=== PATIENT | female | born 2000 | race Caucasian/White ===

== ENCOUNTER 2022-11-07 09:29 | Emergency (ER) | payer SELFPAY ==
[2022-11-07 09:38] VITALS: BP 112/78; PULSE 113; RESP 14; TEMP 35.9; O2SAT 100
--- NOTE | 2022-11-07 09:38 | ED.GENADULT ---
HPI - General Adult General Chief complaint: Dental/Oral Stated complaint: Swollen Lip/Seizure Source: patient and RN notes reviewed History of Present Illness HPI narrative: 22 yo F presents to urgent care with complaints of upper lip swelling and upper dental pain x 2 days. Pt states and shows a picture of her lip swelling yesterday which was much worse. Pt states she had a seizure yesterday where she fell backwards, landing on the couch. Pt states her boyfriend witnessed this states it lasted about 2 minutes. Pt reports hx of epilepsy but hasn't taken meds for the last 4-5 years due to lack of seizures during this time. Pt denies hitting her head on anything. Denies any vomiting, headache, or dizziness. Pt denies any fevers, chills, chest pain, or SOB. Pt denies any new medications, foods, or drinks to explain possible allergic reaction. Related Data Allergies Allergy/AdvReac Type Severity Reaction Status Date / Time No Known Allergies Allergy Mild Verified 11/07/22 09:48 Review of Systems Review of Systems: CONSTITUTIONAL: Denies fever, chills, or sweats. EYES: Denies visual changes, redness, or discharge. ENT: Upper, front, dental pain and upper lip swelling CARDIOVASCULAR: Denies chest pain, palpitations, or edema. RESPIRATORY: Denies cough or dyspnea. GASTROINTESTINAL: Denies abdominal pain, nausea, vomiting, or diarrhea. GENITOURINARY: Denies dysuria or hematuria. SKIN: Denies rash or itching. MUSCULOSKELETAL: Denies back pain, joint pain, or myalgia. NEUROLOGIC: Denies headache, numbness, or weakness. Pertinent positives per HPI. PMFSH Comments At the time of my signature, I reviewed and agree with the nursing past medical, surgical, social, and family history. There is no relevant family history pertinent to the patient complaint. Exam Narrative: GENERAL: This is a well-nourished, well-developed patient, in no apparent distress. HEAD: normocephalic, atraumatic. EYES: Sclera clear/white. Vision is grossly intact. MOUTH: varying degrees of dental decay and broken teeth noted. Upper lip swelling noted. no dental abscess appreciated. EARS: External ears normal, auditory canals clear and without drainage, TMs normal without perforation. Hearing grossly intact. NOSE: External nose normal with no obvious nasal discharge, nares without redness, no rhinorrhea. THROAT: Mucous membranes moist, posterior pharynx clear. NECK: Neck supple, non-tender without lymphadenopathy, masses or thyromegaly. CARDIOVASCULAR: Regular rate and rhythm without murmurs, gallops, or rubs. RESPIRATORY: Clear to auscultation. Breath sounds equal bilaterally. No wheezes, rales, or rhonchi. GASTROINTESTINAL: Abdomen soft, non-tender, nondistended. Bowel sounds are active. No hepato-splenomegaly, or palpable masses. No guarding. SKIN: warm, intact with no suspicious lesions or rash, good texture and turgor. NEURO: awake, alert, and oriented to person, place and time. There were no obvious focal neurologic abnormalities. EXTREMITIES: No clubbing, cyanosis, or edema. No joint tenderness, effusion, or edema noted. BACK: Nontender without deformity or crepitus. No flank tenderness. Course Course Level of Care: Express Care Visit Vital Signs Vital signs: Vital Signs Temperature 96.7 F L 11/07/22 09:38 Pulse Rate 113 H 11/07/22 09:38 Respiratory Rate 14 11/07/22 09:38 Blood Pressure 112/78 11/07/22 09:38 Pulse Oximetry 100 11/07/22 09:38 Oxygen Delivery Room Air 11/07/22 09:38 Temperature 96.7 F L 11/07/22 09:48 Pulse Rate 113 H 11/07/22 09:48 Respiratory Rate 14 11/07/22 09:48 Blood Pressure 112/78 11/07/22 09:48 Pulse Oximetry 100 11/07/22 09:48 Oxygen Delivery Room Air 11/07/22 09:48 Reviewed Medical Decision Making MDM Narrative Medical decision making narrative: May call Richard @ the [address] [address] hrs: Mon-Fri 8:30-5:00
[2022-11-07 09:48] VITALS: BP 112/78; PULSE 113; RESP 14; TEMP 35.9; O2SAT 100
== END 2022-11-07 10:12 | disposition home or self-care (01) ==
PROVIDERS: Emergency Provider Nurse Practitioner Family
DX: K08.89 Other specified disorders of teeth and supporting structures (principal); T78.3XXA Angioneurotic edema, initial encounter
CPT/HCPCS: 99213; G0463